=== PATIENT | male | born 1960 | race Caucasian/White ===

== ENCOUNTER → 2017-01-03 | Outpatient (CLI) | payer BC ==
[~2017-01-03] MED LIST: CARAFATE1 GM PO; COLACE 100MG C100 MG PO; DEXAMETHASONE 44 MG PO; DURAGESIC 75 MCG1 EA TOP; ENSURE LIQUID237 ML PO; LEVAQUIN750 MG PO; LOVENOX SY120 MG/0.8 SQ; MAGIC MOUTHWASH; MIRALAX17 GM PO; NEURONTIN 300300 MG PO; NORCO 10-325 T1 EACH PO; NORVASC 5 MG TAB5 MG PO; OXYCODONE HCL10 MG PO; PERCOCET 10-321 EACH PO; PRINIVIL20 MG PO; PROMOD 946 ML BT1 EA PO; PROTONIX 40 MG40 M1 PO; ROBAXIN 750 MG750 MG PO; SENOKOT-S TABL1 EACH PO; SKELAXIN TAB 8800 MG PO; ZESTORETIC 20-1 EACH PO
== END ==
LOC: KOH-I 13:25
DX: R10.84 Generalized abdominal pain (principal)
CPT/HCPCS: 74176

== ENCOUNTER → 2017-02-14 | Outpatient (CLI) | payer BC | LOC: US 12:44 | DX: N28.1 Cyst of kidney, acquired (principal); N13.30 Unspecified hydronephrosis ==

== ENCOUNTER 2017-02-24 00:12 | Emergency (ER) | payer BC ==
[2017-02-24 01:18] LABS: HEMOGLOBIN 13.4 gm/dl (14.0-17.5); RED BLOOD COUNT 4.47 M/UL (4.20-5.50); WHITE BLOOD COUNT 9.6 K/UL (4.5-11.0)
[2017-02-24 01:39] LABS: BUN/CREATININE RATIO 17 (0-10)
[2017-02-24] MEDS ORDERED: ZESTORETIC 20-1 EACH PO (16:15)
[2017-03-21] MEDS ORDERED: PRINIVIL20 MG PO (07:35)
[2017-03-21] MEDS ORDERED: SKELAXIN TAB 8800 MG PO (07:35)
[2017-03-21] MEDS ORDERED: NEURONTIN 300300 MG PO (07:36)
[2017-05-23] MEDS ORDERED: DEXAMETHASONE 44 MG PO (01:22)
[2017-05-23] MEDS ORDERED: OXYCODONE HCL10 MG PO (01:23)
[2017-05-23] MEDS ORDERED: MAGIC MOUTHWASH (01:25)
[2017-05-23] MEDS ORDERED: DURAGESIC 75 MCG1 EA TOP (01:26)
[2017-06-03] MEDS ORDERED: ENSURE LIQUID237 ML PO (17:02)
[2017-06-03] MEDS ORDERED: PROTONIX 40 MG40 M1 PO (17:03)
[2017-06-03] MEDS ORDERED: PROMOD 946 ML BT1 EA PO (17:04)
[2017-07-02] MEDS ORDERED: COLACE 100MG C100 MG PO (22:32)
[2017-07-02] MEDS ORDERED: ROBAXIN 750 MG750 MG PO (22:34)
[2017-07-02] MEDS ORDERED: PERCOCET 10-321 EACH PO (22:58)
[2017-07-08] MEDS ORDERED: LEVAQUIN750 MG PO (08:15)
[2017-07-08] MEDS ORDERED: LOVENOX SY120 MG/0.8 SQ (08:15)
[2017-07-08] MEDS ORDERED: NORVASC 5 MG TAB5 MG PO (08:16)
== END 2017-02-24 02:23 | disposition home or self-care (01) ==
LOC: ER1 00:12
PROVIDERS: Family Medicine
DX: R10.9 Unspecified abdominal pain (principal); M54.5 Low back pain; R11.0 Nausea; I10 Essential (primary) hypertension; Z79.899 Other long term (current) drug therapy
CPT/HCPCS: 36415; 80053; 82150; 83605; 83690; 85025; 85379; 96361; 96374; 96375; 99283; C9113; J2270; J2405; J7030

== ENCOUNTER 2017-02-24 14:16 | Inpatient (IN) | payer BC ==
[~2017-02-24] VITALS: Ht 185.4 cm; Wt 136.1 kg
[2017-02-24] MEDS ORDERED: ZESTORETIC 20-1 EACH PO (16:15)
[2017-02-24 16:20] LABS: HEMOGLOBIN 13.5 gm/dl (14.0-17.5); RED BLOOD COUNT 4.55 M/UL (4.20-5.50)
[2017-02-24 16:38] LABS: BUN/CREATININE RATIO 14 (0-10); GAMMA GLUTAMYL TRANSPEPTIDASE 29 U/L (7-64)
[2017-02-25 05:04] LABS: RED BLOOD COUNT 4.05 M/UL (4.20-5.50); WHITE BLOOD COUNT 7.4 K/UL (4.5-11.0)
[2017-02-25 05:22] LABS: BUN/CREATININE RATIO 15 (0-10)
[2017-02-26 05:10] LABS: HEMOGLOBIN 11.8 gm/dl (14.0-17.5); RED BLOOD COUNT 4.04 M/UL (4.20-5.50); WHITE BLOOD COUNT 6.5 K/UL (4.5-11.0)
[2017-02-28 04:20] LABS: BUN/CREATININE RATIO 17 (0-10)
[2017-03-01 04:18] LABS: HEMOGLOBIN 11.2 gm/dl (14.0-17.5); RED BLOOD COUNT 3.84 M/UL (4.20-5.50); WHITE BLOOD COUNT 6.5 K/UL (4.5-11.0)
[2017-03-01 04:31] LABS: BUN/CREATININE RATIO 13 (0-10)
[2017-03-02 06:35] LABS: HEMOGLOBIN 11.2 gm/dl (14.0-17.5); RED BLOOD COUNT 3.79 M/UL (4.20-5.50); WHITE BLOOD COUNT 5.4 K/UL (4.5-11.0)
[2017-03-02 06:53] LABS: BUN/CREATININE RATIO 14 (0-10)
[2017-03-03 05:58] LABS: HEMOGLOBIN 10.9 gm/dl (14.0-17.5); RED BLOOD COUNT 3.77 M/UL (4.20-5.50); WHITE BLOOD COUNT 5.9 K/UL (4.5-11.0)
[2017-03-04 06:05] LABS: HEMOGLOBIN 11.7 gm/dl (14.0-17.5); RED BLOOD COUNT 3.99 M/UL (4.20-5.50); WHITE BLOOD COUNT 6.5 K/UL (4.5-11.0)
[2017-03-04 06:32] LABS: BUN/CREATININE RATIO 15 (0-10)
[2017-03-05 06:35] LABS: HEMOGLOBIN 11.9 gm/dl (14.0-17.5); RED BLOOD COUNT 4.06 M/UL (4.20-5.50)
[2017-03-05 06:47] LABS: BUN/CREATININE RATIO 15 (0-10)
[2017-03-05 06:51] LABS: WHITE BLOOD COUNT 8.3 K/UL (4.5-11.0)
[2017-03-07 05:52] LABS: HEMOGLOBIN 11.8 gm/dl (14.0-17.5); RED BLOOD COUNT 4.03 M/UL (4.20-5.50); WHITE BLOOD COUNT 7.6 K/UL (4.5-11.0)
[2017-03-07 06:11] LABS: BUN/CREATININE RATIO 23 (0-10)
[2017-03-07] MEDS ORDERED: NORVASC 5 MG TAB5 MG PO (12:20)
[2017-03-07] MEDS ORDERED: PROTONIX 40 MG40 M1 PO (12:21)
[2017-03-07] MEDS ORDERED: CARAFATE1 GM PO (12:22)
[2017-03-07] MEDS ORDERED: SENOKOT-S TABL1 EACH PO (12:23)
[2017-03-07] MEDS ORDERED: MIRALAX17 GM PO (12:24)
[2017-03-07] MEDS ORDERED: NORCO 10-325 T1 EACH PO (12:25)
[2017-03-21] MEDS ORDERED: PRINIVIL20 MG PO (07:35)
[2017-03-21] MEDS ORDERED: SKELAXIN TAB 8800 MG PO (07:35)
[2017-03-21] MEDS ORDERED: NEURONTIN 300300 MG PO (07:36)
[2017-05-23] MEDS ORDERED: DEXAMETHASONE 44 MG PO (01:22)
[2017-05-23] MEDS ORDERED: OXYCODONE HCL10 MG PO (01:23)
[2017-05-23] MEDS ORDERED: MAGIC MOUTHWASH (01:25)
[2017-05-23] MEDS ORDERED: DURAGESIC 75 MCG1 EA TOP (01:26)
[2017-06-03] MEDS ORDERED: ENSURE LIQUID237 ML PO (17:02)
[2017-06-03] MEDS ORDERED: PROTONIX 40 MG40 M1 PO (17:03)
[2017-06-03] MEDS ORDERED: PROMOD 946 ML BT1 EA PO (17:04)
[2017-07-02] MEDS ORDERED: COLACE 100MG C100 MG PO (22:32)
[2017-07-02] MEDS ORDERED: ROBAXIN 750 MG750 MG PO (22:34)
[2017-07-02] MEDS ORDERED: PERCOCET 10-321 EACH PO (22:58)
[2017-07-08] MEDS ORDERED: LEVAQUIN750 MG PO (08:15)
[2017-07-08] MEDS ORDERED: LOVENOX SY120 MG/0.8 SQ (08:15)
[2017-07-08] MEDS ORDERED: NORVASC 5 MG TAB5 MG PO (08:16)
== END 2017-03-07 09:21 | disposition home or self-care (01) | DRG 384 ==
LOC: M/S 15:05
PROVIDERS: Emergency Medicine; Surgery; ADMIT Family Medicine
PROC: 0DB68ZX Excision of Stomach, Via Natural or Artificial Opening Endoscopic, Diagnostic (ICD-10-PCS; principal; 2017-03-04 10:45)
DX: K26.9 Duodenal ulcer, unspecified as acute or chronic, without hemorrhage or perforation (principal); K22.10 Ulcer of esophagus without bleeding; N17.9 Acute kidney failure, unspecified; N13.30 Unspecified hydronephrosis; K29.70 Gastritis, unspecified, without bleeding; K29.80 Duodenitis without bleeding; I10 Essential (primary) hypertension; J30.2 Other seasonal allergic rhinitis; E66.9 Obesity, unspecified; K59.00 Constipation, unspecified; E83.52 Hypercalcemia; Z83.6 Family history of other diseases of the respiratory system; Z68.39 Body mass index [BMI] 39.0-39.9, adult; Z83.3 Family history of diabetes mellitus
CPT/HCPCS: 36415; 74000; 76705; 78227; 80048; 80053; 80202; 81001; 82150; 82977; 83690; 85025; 85027; 86140; 87086; A9537; G0378; G0379; J1650; J1885; J2270; J2405; J2805; J3370; J7030; J7040; J7070

== ENCOUNTER → 2017-03-21 | Day surgery (SDC) | payer BC | END | disposition home or self-care (01) | LOC: OR 06:56 | PROVIDERS: Surgery | PROC: 0DBN8ZZ Excision of Sigmoid Colon, Via Natural or Artificial Opening Endoscopic (ICD-10-PCS; principal; 2017-03-21 09:45) | DX: K63.5 Polyp of colon (principal); K64.0 First degree hemorrhoids; K21.9 Gastro-esophageal reflux disease without esophagitis; I10 Essential (primary) hypertension; Z87.11 Personal history of peptic ulcer disease; Z79.899 Other long term (current) drug therapy | CPT/HCPCS: J7120 ==